=== PATIENT | female | born 1995 | race African-American/Black ===

== ENCOUNTER 2023-04-21 23:34 | Emergency (ER) | payer MEDICAID, OTHER ==
[~2023-04-21] VITALS: Ht 167.6 cm; Wt 77.2 kg
[2023-04-22 00:30] VITALS: PULSE 119; RESP 26; O2SAT 98
[2023-04-22] MEDS: IOHEXOL 300 MG/ML 100ML BOTTLE IJ ONE (00:40)
[2023-04-22 00:55] LABS: Basophils # (auto) 0.1 10 ^3/uL (0-0.2); Basophils % (auto) 0.6 % (0.0-2.0); Eosinophils # (auto) 0.1 10 ^3/uL (0-0.8); Lymphocytes # (auto) 1.9 10 ^3/uL (0.4-5.4); Lymphocytes % (auto) 23.4 % (10.0-50.0); Monocytes # (auto) 0.7 10 ^3/uL (0-1.3)
[2023-04-22 00:56] LABS: Eosinophils % (auto) 1.4 % (0.0-7.0); Hematocrit 28.8 % (36.0-46.0); Hemoglobin 9.6 g/dL (12.2-16.2); Mean Corpuscular Hemoglobin 27.1 pg (28.0-32.0); Mean Corpuscular Hgb Conc. 33.2 g/dL (32.0-36.0); Mean Corpuscular Volume 81.6 fL (80.0-100.0); Monocytes % (auto) 9.2 % (0.0-12.0); Neutrophils # (auto) 5.3 10 ^3/uL (1.6-8.6); Neutrophils % (auto) 65.4 % (37.0-80.0); Nucleated Red Blood Cells % 0.1 %; Red Blood Cells 3.53 10^6/uL (4.0-5.20); Red Cell Distribution Width 16.4 % (11.8-14.3); White Blood Cell 8.1 10^3/uL (4.4-10.8)
[2023-04-22 01:11] LABS: Alanine Aminotransferase 44 U/L (7-40); Albumin 3.8 g/dL (3.2-4.8); Alkaline Phosphatase 422 U/L (46-116); Anion Gap 11 (5-15); Aspartate Aminotransferase 34 U/L (13-40); BUN/Creatinine Ratio 23.3 (10.0-20.0); Bilirubin, Total 0.4 mg/dL (0.2-1.0); Blood Urea Nitrogen 7 mg/dL (9-23); Calcium 9.2 mg/dL (8.7-10.4); Carbon Dioxide 22 mmol/L (20-30); Chloride 102 mmol/L (98-107); Glucose 70 mg/dL (74-106); INR 1.18 (0.9-1.15); Lipase 50 U/L (12-53); Magnesium 1.7 mg/dL (1.6-2.6); Partial Thromboplastin Time 29.1 SEC (24.5-34.5); Potassium 3.4 mmol/L (3.5-5.1); Prothrombin Time 12.3 sec (9.3-11.8); Sodium 135 mmol/L (136-145); Total Protein 7.6 g/dL (5.7-8.2)
[2023-04-22] MEDS: ONDANSETRON HCL 4 MG/2 ML VIAL ONE (01:49)
[2023-04-22] MEDS: MORPHINE SULFATE 4 MG/ML SYR/VIAL ONE (01:49)
[2023-04-22] MEDS: MORPHINE SULFATE 4 MG/ML SYR/VIAL IV ONE (01:50)
[2023-04-22] MEDS: ONDANSETRON HCL 4 MG/2 ML VIAL IV ONE ×5 (01:51→17:40)
[2023-04-22] MEDS: D5W/LACTATED RINGERS 1,000 ML IV ONE (02:23)
[2023-04-22] MEDS: HYDROmorphone HCL 2 MG/ML VL/or syr IV ONE ×6 (02:36→21:04)
[2023-04-22] MEDS: cefTRIAXone 1GM/50ML D5W 50 ML IV ONE (05:16)
[2023-04-22 07:35] VITALS: PULSE 114; RESP 20; O2SAT 97
[2023-04-22] MEDS: APIXABAN 5 MG TAB PO ONE (09:37)
[2023-04-22 13:49] LABS: Urine Bacteria FEW /hpf (None Seen); Urine Blood Negative /uL (Negative); Urine Budding Yeast MANY /hpf (None Seen); Urine Clarity HAZY (Clear); Urine Color Yellow (Yellow); Urine Protein, UAD 1+ (Negative); Urine WBC 2 /hpf (0 - 5); Urine pH 6.5 (5.0-8.0)
[2023-04-22 19:08] LABS: Basophils # (auto) 0.1 10 ^3/uL (0-0.2); Basophils % (auto) 0.6 % (0.0-2.0); Eosinophils # (auto) 0.1 10 ^3/uL (0-0.8); Monocytes # (auto) 0.8 10 ^3/uL (0-1.3); Neutrophils # (auto) 5.8 10 ^3/uL (1.6-8.6)
[2023-04-22 19:09] LABS: Hemoglobin 9.7 g/dL (12.2-16.2); Lymphocytes # (auto) 1.6 10 ^3/uL (0.4-5.4); Lymphocytes % (auto) 19.4 % (10.0-50.0); Mean Corpuscular Hemoglobin 26.6 pg (28.0-32.0); Mean Corpuscular Hgb Conc. 32.4 g/dL (32.0-36.0); Mean Corpuscular Volume 81.9 fL (80.0-100.0); Monocytes % (auto) 9.3 % (0.0-12.0); Neutrophils % (auto) 69.7 % (37.0-80.0); Nucleated Red Blood Cells % 0.1 %; Red Blood Cells 3.67 10^6/uL (4.0-5.20); Red Cell Distribution Width 16.7 % (11.8-14.3); White Blood Cell 8.4 10^3/uL (4.4-10.8)
[2023-04-22 20:15] VITALS: PULSE 117; RESP 20; O2SAT 97
[2023-04-23] MEDS: HYDROmorphone HCL 2 MG/ML VL/or syr IV PRN (00:52)
[2023-04-23] MEDS: LIDOCAINE HCL 2% TOP JELLY 5ML TOP ONE (01:49)
[2023-04-23] MEDS: LORazepam 2MG/ML-1ML VIAL IV ONE (03:11)
[2023-04-23] MEDS: LORazepam 2MG/ML-1ML VIAL ONE (03:23)
[2023-04-23] MEDS: KETAMINE 50mg/ML 10ml Vial (500mg/10ml) IV ONE (03:33)
[2023-04-23 04:10] VITALS: BP 140/87; PULSE 126; RESP 16; TEMP 98.7; O2SAT 100
== END 2023-04-23 04:43 | disposition short-term general hospital (02) ==
LOC: EDBD 23:34 → ER 23:34
DX: S36.112A Contusion of liver, initial encounter (principal); R10.2 Pelvic and perineal pain; S36.029A Unspecified contusion of spleen, initial encounter; S37.012A Minor contusion of left kidney, initial encounter; S37.011A Minor contusion of right kidney, initial encounter; Z79.899 Other long term (current) drug therapy; X58.XXXA Exposure to other specified factors, initial encounter; Y93.89 Activity, other specified; Y92.89 Other specified places as the place of occurrence of the external cause; Y99.8 Other external cause status
CPT/HCPCS: 36415; 51702; 80053; 81001; 83690; 83735; 84702; 85025; 85610; 85730; 96361; 96365; 96375; 96376; 99285; J0696; J1170; J2060; J2270; J2405; Q9967; 74177; 76700